=== PATIENT | male | born 1990 | race Two or more races ===

== ENCOUNTER 2022-01-30 12:01 | Emergency (ER) | payer MEDICAID, OTHER ==
[~2022-01-30] VITALS: Ht 182.9 cm; Wt 79.4 kg
[2022-01-30 12:43] VITALS: BP 107/50
== END 2022-01-30 13:56 | disposition left against medical advice (07) ==
LOC: ER 12:01
DX: R10.9 Unspecified abdominal pain (principal); R11.2 Nausea with vomiting, unspecified; Z53.21 Procedure and treatment not carried out due to patient leaving prior to being seen by health care provider

== ENCOUNTER 2023-09-20 17:28 | Emergency (ER) | payer OTHER ==
[~2023-09-20] VITALS: Ht 180.3 cm; Wt 84.3 kg
[2023-09-20 18:23] VITALS: BP 130/76; PULSE 104; RESP 18; TEMP 98.2; O2SAT 97
[2023-09-20] MEDS: KETOROLAC TROMETH 60MG/2ML VIAL IM ONE (18:31)
[2023-09-20] MEDS: HYDROcodone-ACET 10/325MG TAB PO ONE (18:31)
[2023-09-20] MEDS ORDERED: IBUP-1455 PO (19:28)
[2023-09-20] MEDS ORDERED: ACET500T58 PO (19:28)
== END 2023-09-20 19:33 | disposition home or self-care (01) ==
LOC: ER 17:38
DX: S16.1XXA Strain of muscle, fascia and tendon at neck level, initial encounter (principal); S40.011A Contusion of right shoulder, initial encounter; V89.2XXA Person injured in unspecified motor-vehicle accident, traffic, initial encounter; Y93.I9 Activity, other involving external motion; Y92.89 Other specified places as the place of occurrence of the external cause; Y99.8 Other external cause status
CPT/HCPCS: 72040; 73030; 99284; J1885